=== PATIENT | male | born 1935 | race Caucasian/White ===

== ENCOUNTER → 2017-12-31 | Outpatient (CLI) | payer MEDICARE, BC ==
[~2017-12-31] MED LIST: AMOXICILLIN/CLA1 TA1 PO; ASPIRIN 81M81 MG/TA2 PO; PRAVACHOL 40MG40 MG PO; PRESERVISION1 SGL PO; TRAVATAN Z 2.52.5 ML OS
== END ==
LOC: COL.RAD 10:00
DX: I65.23 Occlusion and stenosis of bilateral carotid arteries (principal); I65.01 Occlusion and stenosis of right vertebral artery
CPT/HCPCS: Q9967

== ENCOUNTER → 2020-03-16 | Outpatient (CLI) | payer MEDICARE, BC | LOC: COL.RAD 11:09 | DX: M47.812 Spondylosis without myelopathy or radiculopathy, cervical region (principal); M43.12 Spondylolisthesis, cervical region; M40.50 Lordosis, unspecified, site unspecified; Z98.890 Other specified postprocedural states ==

== ENCOUNTER 2021-08-11 19:50 | Inpatient (IN) | payer MEDICARE, BC ==
[~2021-08-11] VITALS: Ht 175.3 cm; Wt 55.9 kg
[2021-08-11] MEDS ORDERED: KAPSPARGO SPRIN25 MG PO (20:05)
[2021-08-11 20:27] LABS: BASO % 0.7 % (0.0-2.0); EOS # 0.1 K/mm3 (0.0-0.7); GRAN # 4.3 K/mm3 (1.4-6.5); GRAN % 70.6 % (42.2-75.2); HEMATOCRIT 46.3 % (42.0-52.0); HEMOGLOBIN 15.5 g/dl (13.5-18.0); LYMPH # 0.9 K/mm3 (1.2-3.4); LYMPH % 14.9 % (20.0-51.0); MEAN CELL VOLUME 97 fl (80.0-100.0); MEAN CORPUSCULAR HEMOGLOBIN 33 pg (27-31); MEAN CORPUSCULAR HGB CONC 34 g/dl (33.0-37.0); MEAN PLATELET VOLUME 11.3 fl (7.4-10.4); MONO # 0.8 K/mm3 (0.1-0.6); MONO % 12.6 % (1.7-9.3); PLATELET COUNT 171 K/mm3 (130-400); RED BLOOD COUNT 4.77 M/mm3 (4.20-5.60); REDCELL DISTRIBUTION WIDTH-CV 13.6 % (11.5-14.5)
[2021-08-11 20:46] LABS: ALBUMIN 4.3 gm/dL (3.4-4.8); BILIRUBIN,TOTAL 1.3 mg/dL (0.2-1.2); CALCIUM 9.4 mg/dL (8.4-10.2); CREATININE, serum 1.18 mg/dL (0.72-1.25); POTASSIUM 3.5 mmol/L (3.5-4.5)
[2021-08-11 20:55] LABS: TROPONIN-I 0.039 ng/mL (0.00-0.033)
[2021-08-11 21:22] LABS: C-REACTIVE PROTEIN 0.41 mg/dL (0.00-0.50)
[2021-08-11] MEDS ORDERED: TOPROL XL 25MG25 MG (23:22)
--- NOTE | 2021-08-11 23:30 | NUR ---
Called Dr Roa regarding patient- informed of temp of 99.6,, states we will do blood cultures and he is ordering antibiotics, also informed of troponin 0.054, informed that patient did have a soft brown stool,, states to not give tonights dose of Dulcolox suppository.
[2021-08-11 23:37] VITALS: BP 160/69; PULSE 65; TEMP 99.6
--- NOTE | 2021-08-11 23:48 | NUR ---
Admitted to medical floor from ER- states very weak, no appetite, stomach "Upset" , Dr. Roa here to see patient, Patient is alert/oriented x4 , Tele on, understands to call for assistance to bathroom, NPO, but Dr Roa states can have some sips/chips at this time. IV fluids of NS at 75cc/hr to L/FA.
[2021-08-12 02:54] LABS: COLLECTION METHOD CLEAN CATCH
[2021-08-12 03:01] LABS: MUCOUS Present (NOT PRESENT); PH 5 (5-8); SQUAMOUS EPITHELIAL None Seen /hpf (0-10); URINE APPEARANCE Clear (CLEAR/HAZY); URINE BACTERIA None Seen /hpf (NONE SEEN); URINE BILIRUBIN Negative (NEGATIVE); URINE BLOOD 2+ (NEGATIVE); URINE COLOR Yellow (YELLOW); URINE GLUCOSE Negative (NEGATIVE); URINE KETONE Trace (NEGATIVE); URINE LEUKOCYTE ESTERASE Negative (NEGATIVE); URINE NITRATE Negative (NEGATIVE); URINE PROTEIN(semi-quant) Negative (NEGATIVE); URINE UROBILINOGEN Negative (NEGATIVE)
[2021-08-12 03:56] VITALS: BP 113/55; PULSE 71; TEMP 98.6
--- NOTE | 2021-08-12 06:04 | NUR ---
Has been sleeping well most of the night-- did wake up around 0245 and was in abd pain 08/31-- did give Dilaudid IV , denies need for nausea med, Dilaudid was effective for pain and patient has been sleeping well since. VSS
[2021-08-12 06:57] LABS: BASO % 0.5 % (0.0-2.0); EOS # 0.1 K/mm3 (0.0-0.7); EOS % 1.4 % (0.0-4.0); GRAN # 2.7 K/mm3 (1.4-6.5); GRAN % 64.5 % (42.2-75.2); HEMATOCRIT 40.6 % (42.0-52.0); LYMPH # 0.8 K/mm3 (1.2-3.4); LYMPH % 17.6 % (20.0-51.0); MEAN CELL VOLUME 101 fl (80.0-100.0); MEAN CORPUSCULAR HEMOGLOBIN 33 pg (27-31); MEAN CORPUSCULAR HGB CONC 33 g/dl (33.0-37.0); MONO # 0.7 K/mm3 (0.1-0.6); MONO % 15.8 % (1.7-9.3); PLATELET COUNT 114 K/mm3 (130-400); RED BLOOD COUNT 4.04 M/mm3 (4.20-5.60); REDCELL DISTRIBUTION WIDTH-CV 13.5 % (11.5-14.5)
[2021-08-12 07:04] LABS: ALBUMIN 3.4 gm/dL (3.4-4.8); BILIRUBIN,TOTAL 1.1 mg/dL (0.2-1.2); CALCIUM 8.5 mg/dL (8.4-10.2); CREATININE, serum 0.89 mg/dL (0.72-1.25); POTASSIUM 3.5 mmol/L (3.5-4.5); TOTAL PROTEIN 5.8 gm/dL (6.2-8.1)
[2021-08-12 07:31] LABS: HEMOGLOBIN 13.3 g/dl (13.5-18.0)
[2021-08-12 08:00] VITALS: BP 146/70; PULSE 81; TEMP 97.8
--- NOTE | 2021-08-12 08:46 | NUR ---
Shift assessment performed. Scheduled medications given. PRN pain medication given for nagging abd pain rated a 6/10. Suppository held due to dirrhea. Fluids and abx running as ordered. Upon palpitation of abd, patient reports tenderness in across the upper portion of his abd. Patient appears emaciated. Patient is currenlty resting in bed. Denies any further pain, discomfort, SOA, or further needs at this time. Call light in reach. Fall percautions in place.
[2021-08-12 12:07] VITALS: BP 162/71; PULSE 49; TEMP 98.2
--- NOTE | 2021-08-12 12:17 | NUR ---
CRITICAL TROPONIN CALLED TO RAFFY. INSTRUCTED TO REPEAT AT 1600.
--- NOTE | 2021-08-12 13:39 | NUR ---
SARAH met with the pt to complete intake. Pt lives at home with his spouse, Alex [phone]. Pt reports he is independent on all ADLs and does not use any DME currently, but he has heart monitor coming in the mail this week. He reports no DPOA-HC and is not interested in one at this time. PCP is Markel Brambila and gets his medications from [facility]. Pt repors they have 3 adult children. DC: Home.
--- NOTE | 2021-08-12 14:32 | NUR ---
Tele called this RN stating that patient had a 6 beat run of VTACH. Patient asymptomatic. Jimmy notified.
[2021-08-12 15:20] VITALS: BP 140/69; PULSE 80; TEMP 98
--- NOTE | 2021-08-12 16:43 | NUR ---
Critical troponin called to Jimmy, who read back the results.
--- NOTE | 2021-08-12 17:27 | NUR ---
Patient has had an ok day. PRN pain medication 2x this shift for nagging abd pain. VSS. Patient A&O. Patient currently denies any pain, discomfort, SOA, or further needs at this time. Call light in reach. Fall percuations in place. fluids running as ordered.
[2021-08-12 20:49] VITALS: BP 165/70; PULSE 84; TEMP 98.6
--- NOTE | 2021-08-12 23:02 | NUR ---
ALERT AND OX4. C/O LOWER ABD RT SIDE PAIN. SOME NAUSEA R/T PAIN- ZOFRAN GIVEN. WILL BE NPO FOR POSSIBLE ERCP. CONSULTING GI IN AM. ECO ALSO TO BE DONE IN AM. POC DISCUSSED. CALL LIGHT WI REACH.
[2021-08-12 23:33] VITALS: BP 187/70; PULSE 75; TEMP 98.8
[2021-08-13 03:27] VITALS: BP 131/62; PULSE 65; TEMP 98.6
[2021-08-13 06:46] LABS: BASO % 0.5 % (0.0-2.0); EOS % 0.2 % (0.0-4.0); GRAN # 2.8 K/mm3 (1.4-6.5); HEMATOCRIT 41.5 % (42.0-52.0); HEMOGLOBIN 13.8 g/dl (13.5-18.0); LYMPH # 0.9 K/mm3 (1.2-3.4); LYMPH % 21.3 % (20.0-51.0); MEAN CELL VOLUME 98 fl (80.0-100.0); MEAN CORPUSCULAR HEMOGLOBIN 33 pg (27-31); MEAN CORPUSCULAR HGB CONC 33 g/dl (33.0-37.0); MEAN PLATELET VOLUME 12.2 fl (7.4-10.4); MONO # 0.5 K/mm3 (0.1-0.6); MONO % 11.5 % (1.7-9.3); PLATELET COUNT 104 K/mm3 (130-400); RED BLOOD COUNT 4.23 M/mm3 (4.20-5.60); REDCELL DISTRIBUTION WIDTH-CV 13.4 % (11.5-14.5)
[2021-08-13 07:01] LABS: CALCIUM 8.2 mg/dL (8.4-10.2); CREATININE, serum 0.91 mg/dL (0.72-1.25); POTASSIUM 3.1 mmol/L (3.5-4.5)
[2021-08-13 07:45] VITALS: BP 134/54; PULSE 66; TEMP 98.2
--- NOTE | 2021-08-13 07:51 | NUR ---
PATIENT C/O OF 6-7(10) PAIN. ROXICODONE PER MAR GIVEN, WITH SIP OF WATER. ASSESSMENT PERFORMED. ACTIVE BOWEL SOUNDS IN ALL QUADRANTS. NO COMPLAINTS OF PAIN ON PALPITATIONS, NO GUARDING OR WITHDRAWING. PATIENT STATES "PAIN LOCATIED CENTRALLY AROUND THE UMBILICUS. PAIN A CONSTANT ACHE." PATIENT HAD SOME NOTED BLOOD TINGED SPUTUM/NASAL SECREATIONS IN TISSUES ON BEDSIDE TABLE. AUTHOR INQUIRED, AND CONFIRMED. BASIN ALSO HAS SCANT EMISIS FROM OVER NIGHT. SKIN INTACT. PATIENT MISSING DISTAL JOINT OF LEFT FIRST DIGIT OF HAND. 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 NORMAL STRENGTH IN HANDS AND FEET. CARROTER STRENGTH NOT AFFECTED. PATIENT PLAN FOR ERCP, WILL REPLACE POTASSIUM IV TODAY, AND CHECK MAG PER PROVIDER. MONITOR URINARY OUTPUT, CT SHOWED STONE IN BLADDER AND REPORTS OF PATIENT HAVING BLOOD TINGED URINE, WITH UA + FOR RBC.
--- NOTE | 2021-08-13 11:06 | NUR ---
Initial visit; Patient was hoping Lean Manufacturing Specialist was a nurse bringing ice that he had requested. Patient appears to be quite ill though friendly able to move about. Patient declined Spiritual Care.
[2021-08-13 12:04] VITALS: BP 120/55; PULSE 66; TEMP 98.2
[2021-08-13 15:49] VITALS: BP 130/56; PULSE 61; TEMP 98.2
--- NOTE | 2021-08-13 17:57 | NUR ---
PATIENT COMPLAINTS OF PAIN, DRY HEAVING WITH MOMENTS OF BILE EMESIS. ONLY INTAKE OF SIPS OF WATER AND ICE CHIPS. IV FLUIDS CONTINUED. POTASSIUM SLOW INFUSION. HALF NORMAL RATE. NEW IV ADDED JUST DISTAL OF ORIGINAL SITE. DUCOLAX SUPPOSITORY ORDERED TO TRY TO RELIEVE PRESSURE IN ABDOMEN, AND STIMULATE BOWEL MOVEMENT AND GAS EXPULSION. WILL ATTEMPT BEFORE SHIFT REPORT. IV ONDASTERON GIVEN, PATIENT CONSISTENTLY REQUESTING ORAL PAIN MEDS. EDUCATED REGUARDING BOWEL FUNCTION AND ORAL/IV PAIN MEDICATIONS.
[2021-08-13 20:46] VITALS: BP 167/75; PULSE 68; TEMP 98.9
[2021-08-14 00:45] VITALS: BP 149/66; PULSE 59; TEMP 98.3
[2021-08-14 04:39] VITALS: BP 131/62; PULSE 63; TEMP 98.6
[2021-08-14 06:43] LABS: BASO % 0.2 % (0.0-2.0); GRAN # 3.3 K/mm3 (1.4-6.5); GRAN % 71.2 % (42.2-75.2); HEMATOCRIT 40.8 % (42.0-52.0); HEMOGLOBIN 13.8 g/dl (13.5-18.0); LYMPH # 0.8 K/mm3 (1.2-3.4); LYMPH % 17.5 % (20.0-51.0); MEAN CELL VOLUME 97 fl (80.0-100.0); MEAN CORPUSCULAR HEMOGLOBIN 33 pg (27-31); MEAN CORPUSCULAR HGB CONC 34 g/dl (33.0-37.0); MEAN PLATELET VOLUME 12.2 fl (7.4-10.4); MONO # 0.5 K/mm3 (0.1-0.6); MONO % 10.9 % (1.7-9.3); PLATELET COUNT 91 K/mm3 (130-400); RED BLOOD COUNT 4.22 M/mm3 (4.20-5.60); REDCELL DISTRIBUTION WIDTH-CV 13.5 % (11.5-14.5)
[2021-08-14 07:10] LABS: CALCIUM 8.1 mg/dL (8.4-10.2); CREATININE, serum 0.8 mg/dL (0.72-1.25); POTASSIUM 3.6 mmol/L (3.5-4.5)
[2021-08-14 08:05] VITALS: BP 154/82; PULSE 69; TEMP 97.9
[2021-08-14 11:34] VITALS: BP 129/55; PULSE 59; TEMP 97.8
--- NOTE | 2021-08-14 13:28 | NUR ---
PATIENT RESTING IN BED. C/O PAIN, 4(10). SPUTUM, COPIOUS AMOUNTS. PATIENT WITH PERSISTENT COUGH. PICC LINE ORDERED, WITH TPN. PATIENT NOT TOLERATING PO INTAKE. LUNG SOUNDS WORSENING FROM YESTURDAY TODAY. PROVIDER NOTIFIED.
[2021-08-14 15:51] VITALS: BP 137/65; PULSE 66; TEMP 98.6
[2021-08-14 15:56] LABS: ALBUMIN 3.2 gm/dL (3.4-4.8); BILIRUBIN,TOTAL 0.9 mg/dL (0.2-1.2); CREATININE, serum 0.81 mg/dL (0.72-1.25); PHOSPHOROUS 2.2 mg/dL (2.3-4.7); POTASSIUM 3.6 mmol/L (3.5-4.5); TOTAL PROTEIN 5.8 gm/dL (6.2-8.1)
--- NOTE | 2021-08-14 18:22 | NUR ---
PATIENT PICC PLACEMENT. TPN WITH LIPIDS STARTED. 1/2 NS AND IV ANTIBIOTICS. TWO PIV SITES STILL PATENT. IV PAIN MEDS AND ORAL PAIN MEDS AVAILABLE. PATIENT AWARE THAT FREQUENT NARCOTICS CAN CAUSE BOWEL STOPPAGES. PATIENT HAD ABD XRAY AND CHEST XRAY. ABD IS NON-REMARKABLE, GASEOUS . CHEST SHOWS PNEUMONIA, LUNG SOUNDS WHEEZES AND CRACKLES. NON-AMBULATORY DUE TO NOT TOLERATING UP-RIGHT BODY POSITION. ENCOURAGING PO CLEARS.
[2021-08-14 20:30] VITALS: BP 185/59; PULSE 68; TEMP 97.5
--- NOTE | 2021-08-14 20:30 | NUR ---
Initial shift assessment done- states having abd pain 08/31--will give Roxicodone as ordered, denies nausea. taking only sips/chips, Abd is distended,soft, with very hyperactive bowel sounds, PICC to JUILANO with TPN at 35cc/hr and lipids at 21cc/hr, also has 1/2 NS at 30cc/hr. Tele on. Voiding per urinal empied 250 marcellus colred urine at this time.
[2021-08-15 00:17] VITALS: BP 156/74; PULSE 67; TEMP 98.8
--- NOTE | 2021-08-15 04:20 | NUR ---
O2 sats 89-90 % on RA- put on 3L/nc, sats now 93 %
[2021-08-15 04:49] VITALS: BP 145/89; PULSE 50; TEMP 99.1
--- NOTE | 2021-08-15 05:34 | NUR ---
Resting on and off- has had abd pain and received Dilaudid IV x2 and oxycodone p.o x1 this shift-- Dilaudid was more effective for pain control during the night. Denies nausea- Continues with TPN-
[2021-08-15 06:41] LABS: BASO % 0.2 % (0.0-2.0); EOS % 0.4 % (0.0-4.0); GRAN # 4.3 K/mm3 (1.4-6.5); GRAN % 78.7 % (42.2-75.2); HEMATOCRIT 37.3 % (42.0-52.0); HEMOGLOBIN 12.7 g/dl (13.5-18.0); LYMPH # 0.6 K/mm3 (1.2-3.4); LYMPH % 11.6 % (20.0-51.0); MEAN CELL VOLUME 97 fl (80.0-100.0); MEAN CORPUSCULAR HEMOGLOBIN 33 pg (27-31); MEAN CORPUSCULAR HGB CONC 34 g/dl (33.0-37.0); MEAN PLATELET VOLUME 12.4 fl (7.4-10.4); MONO # 0.5 K/mm3 (0.1-0.6); MONO % 8.7 % (1.7-9.3); PLATELET COUNT 86 K/mm3 (130-400); RED BLOOD COUNT 3.86 M/mm3 (4.20-5.60); REDCELL DISTRIBUTION WIDTH-CV 13.4 % (11.5-14.5)
[2021-08-15 06:46] LABS: CALCIUM 7.8 mg/dL (8.4-10.2); CREATININE, serum 0.77 mg/dL (0.72-1.25); PHOSPHOROUS 1.8 mg/dL (2.3-4.7); POTASSIUM 3.2 mmol/L (3.5-4.5)
[2021-08-15 07:27] VITALS: BP 174/91; PULSE 72; TEMP 98
--- NOTE | 2021-08-15 08:49 | NUR ---
PATIENT ALERT AND ORIENTED X3. ON TPN. CLEAR LIQUID DIET. MRI THIS AFTERNOON. NOW NPO. NO NEW CONCERNS.
[2021-08-15 12:22] VITALS: BP 146/75; PULSE 71; TEMP 99.2
[2021-08-15 16:19] VITALS: BP 160/88; PULSE 57; TEMP 98.4
[2021-08-15 19:22] VITALS: BP 181/76; PULSE 74; TEMP 98.2
--- NOTE | 2021-08-16 01:30 | NUR ---
PT REPORTED PAIN 6-7 AND SHOOTS UP TO 9-10 THAT HE HAD NOT SLEPT FOR DAYS. PAIN MEDS AND SLEEP GIVEN ALONG WITH PM MEDS. TPN RUNNING PER ORDER. OCC NAUSEA. SCHE REGLAN.PICC FLUSHED W GOOD BLOOD RETURN. POC DISCUSSED. NEEDS MET.
[2021-08-16 03:18] VITALS: BP 163/76; PULSE 84; TEMP 98.9
--- NOTE | 2021-08-16 05:47 | NUR ---
PAIN CONTROLLED W BOTH IV AND PO PAIN MED, CONT TO HAVE LOOSE STOOLS. NEEDS MET. CALL LIGHT WI REACH.
[2021-08-16 07:06] LABS: MAGNESIUM 2.1 mg/dL (1.6-2.6); PHOSPHOROUS 1.8 mg/dL (2.3-4.7)
[2021-08-16 07:42] VITALS: BP 186/70; PULSE 95; TEMP 97.6
--- NOTE | 2021-08-16 08:49 | NUR ---
PATIENT PAIN BETTER CONTROLLED WITH ROXICODONE. PATIENT STILL NAUSEOUS. PATIENT IS UNCOMFORTABLE AND WANTS TO GO HOME.
[2021-08-16 13:10] VITALS: BP 150/93; PULSE 70
--- NOTE | 2021-08-16 14:45 | NUR ---
material preparation worker met with patient to discuss discharge plan. Asked if the patient would be interested in going to skilled rehab after this stay. Informed the patient that at this time PT/OT is recommending a return home. Patient is not interested in going to post acute rehab. Patient states that at this time he is in a lot of pain. He asks if he would be able to get morphine. Informed him that i would let his nurse know and that she will check into it with the MD.
[2021-08-16 15:49] VITALS: BP 160/54; PULSE 84; TEMP 98.3
--- NOTE | 2021-08-16 19:50 | NUR ---
Initial shift assessment done-states abd pain 12/31,,will give Dilaudid IV as ordered, denies nausea, o2 at 3L/nc, sats 93%, PICC to JULIANO has TPN at 42cc/hr, and Lipids at 21cc/hr, Tele on-ST at 106/min, some dysrrythmias, B/P borderline high at 184/85, will take again in 1 hour to see if pain meds brings it down before giving prn Hydralazine. Taking just sips of CL
[2021-08-16 20:08] VITALS: BP 184/85; PULSE 101; TEMP 98.5
[2021-08-16 21:00] VITALS: BP 157/84
[2021-08-17] VITALS (7 sets, daily range): BP systolic 129–203; BP diastolic 61–109; PULSE 51–116; TEMP 97.8–98.9
--- NOTE | 2021-08-17 00:20 | NUR ---
B/P 203/109, pulse 106, abd pain 10/31--Dilaudid IV and Hydralazine IV given at this time-- denies nausea.
--- NOTE | 2021-08-17 02:10 | NUR ---
HR has been 120-130 on and off tonight- everytime he is up on the commode or using urinal- cannot get comfortable , B/P have been high- did come down 163/91 after hydralazine, pt has been getting the Dilaudid every 2 hours for pain but pt states the last dose did not work, pt coughing, productive white sputum- Jeni VITALE called with all of the above- feels it is anxiety related-- ordered Ativan IV and Metoprolol IV one time orders-
--- NOTE | 2021-08-17 04:57 | NUR ---
Has been sleeping soundly since Ativan IV/Metoprolol IV was given, very effective- HR down to 70-80s/min, B/P down to 134/61
--- NOTE | 2021-08-17 06:30 | NUR ---
PT LAYING IN BED AWAKE. STATES HE FEELS MUCH BETTER TODAY THAN HE DID YESTERDAY. PAIN IS A 4/10 AT THIS TIME. NO OTHER CONCERNS. WILL RETURN FOR ASSESSMENT AND MORNING MEDICATIONS.
[2021-08-17 07:09] LABS: CALCIUM 8.1 mg/dL (8.4-10.2); CREATININE, serum 0.65 mg/dL (0.72-1.25); MAGNESIUM 2.1 mg/dL (1.6-2.6)
[2021-08-17 07:11] LABS: POTASSIUM 2.9 mmol/L (3.5-4.5)
--- NOTE | 2021-08-17 08:37 | NUR ---
ASSESSMENT COMPLETED. PT A&OX4, VSS.
--- NOTE | 2021-08-17 11:26 | NUR ---
SW met with patient along with palliative care RN to discuss goals of care. upon entering room, patient states he is in pain and is current experiencing N/V. Patient's RN notified. Patient verbalized that he would like to pursue hospice services. Education provided on the differnt facilities that would be available to him. Patient verbalized that he would like to go home. Educated him that his would be his 24/7 caregiver. Patient is unsure if she would be able to provide his care. Patient is open to looking into the hospice house as long as it is not expensive. Palliative care RN and myself contact the patients at home ([phone]). expresses concerns over where a hospital bed would be able to be placed within the home and asks why he wouldn't be able to stay in his own bed. Education provided to her that at this time, he would be bedbound. expressed that she would not like any of the patient's information sent to a facility until she spoke with her son. SW attended clinical rounding and the patient verbalized an agreement with sending his information to [facility].
--- NOTE | 2021-08-17 15:38 | NUR ---
Jake from [facility] reached out to patient and reported back to me about conversation. She explained sliding scale to patient and stated he was still wanting to go home but was unsure his could handle it at home. Jake shared that they provide home services and he has the option to transition to the house if needed. Patient again concerned about finances and . Jake stated that the house has availability, they would prefer an admit of Friday or Friday because Friday and Friday already have admits planned. Notified SW as well.
--- NOTE | 2021-08-17 18:39 | NUR ---
PATIENT ORIENT AND ALERT X4,PLACED ON PALLIATIVE CARE,NOW DNR, HAD COMPLAINS OF ABD PAIN THROUGHOUT THE DAY,RATES IT AT 7/8 , P.O MORPHINE GIVEN PRESCRIBED , LIPIDS AND TPN UPAND RUNNING.
--- NOTE | 2021-08-17 22:32 | NUR ---
Patient assessed around 2034. Alert and oriented. Reported pain, but declined pain medication at that time. PICC to RUE with TPN/lipids running per orders. Productive cough. LS coarse crackles. BSAx4. No edema. In bed with call light within reach. Bed alarm on.
[2021-08-18 00:50] VITALS: BP 131/97; PULSE 88; TEMP 98.9
[2021-08-18 04:39] VITALS: BP 170/98; PULSE 53; TEMP 98.1
--- NOTE | 2021-08-18 05:43 | NUR ---
Patient had declined pain medication during the night, but was moaning and having facial grimacing. Talked to patient about pain medication, and was agreeable to take medication. Given per orders as requested. Also given PRN Zofran for nausea this morning. In bed with call light within reach. Bed alarm on. Voices no further questions, needs, or concerns at this time.
[2021-08-18 07:22] LABS: MAGNESIUM 2.1 mg/dL (1.6-2.6)
--- NOTE | 2021-08-18 07:24 | NUR ---
PATIENT IS SICK LOOKING AND WEAKLY,ALERT AND ORIENT X4, STATES THAT PAIN IS AT 7/10.
[2021-08-18 08:03] VITALS: BP 138/83; PULSE 113; TEMP 99
--- NOTE | 2021-08-18 09:19 | NUR ---
Maritime Officer confirmed plan of care for patient to admit to hospice care through [facility] with both Dr. Blackmon and Delia ARCE. Patient and family supports placement at Hospice House vs. home with hospice care. Jake from [facility] has met and spoken to patient and family yesterday. Per Jake, an admission is preferred today or tomorrow. Maritime Officer contacted [facility] and spoke to Sussy ARCE who informs the facility typically does not accept admissions on the weekend, but due to shared information will contact Jake to discuss and call this Maritime Officer back. Maritime Officer awaiting follow up from [facility] for discharge coordination.
--- NOTE | 2021-08-18 11:31 | NUR ---
Floor Trader received return contact from Sussy ARCE from [facility] informing she has spoken to Jake, and is able to coordinate placement today. She confirms patient's primary care physician, will contact to determine patient acceptance, and requests DNR, specific medications for comfort measures. 10:00 Floor Trader receives returned contact from Sussy ARCE informing Dr. Ulloa is willing to accept patient to hospice on behalf of Dr. Rivera. RN would like to come up to the hospital to spek with patient and family to support in their decision making. Anticipated discharge today. Delia ARCE and Dr. Blackmon updated. *Discharge plan: [facility] care at home vs. hospice house placement. Awaiting RN to arrive and speak to patient and family to confirm plan of care*
--- NOTE | 2021-08-18 12:26 | NUR ---
Explosives Mixer Operator met with patient to discuss plan and notify that the RN from [facility] will come to visit him today to further offer him information and address any concerns he has. He is in agreement, and he contacted his spouse to notify. She is planning to get a ride to the hospital as soon as possible to make the meeting. Delia ARCE is updated. Dr. Blackmon is updated on plan of care.
[2021-08-18] MEDS ORDERED: DULCOLAX S10 MG/SUPP RC ×2 (12:34)
[2021-08-18] MEDS ORDERED: SYSTANE 0.4%-0.1 SOL OU ×2 (12:34)
[2021-08-18] MEDS ORDERED: TRANSDERM-0.5 MG/21 TD ×2 (12:34)
[2021-08-18] MEDS ORDERED: ROXANOL 20MG20 MG/ML SL ×2 (12:38)
[2021-08-18] MEDS ORDERED: ATIVAN 1MG T1 MG/TAB PO ×2 (12:38)
[2021-08-18 12:51] VITALS: BP 183/85; PULSE 103; TEMP 98.2
--- NOTE | 2021-08-18 16:52 | NUR ---
Delia ARCE informs this Analog Ic Design Engineer and Photographer Still Radha, that patient family and [facility] RN Sussy, have confirmed plan of care for patient to admit to hospice house tomorrow morning at 10:30. Patient son has requested to transport patient there himself, and patient is determined able to be transported safely in a private vehicle. *Discharge plan: [facility] tomorrow morning at 10:30, patient son to transport him in private vehicle*
--- NOTE | 2021-08-18 18:28 | NUR ---
PATIENT COMPLAINS OF PAIN THROUGHOUT THE DAY, ON OPIDS PRESCRIBED, ON PALLIATIVE CARE, DC TO HOSPICE.
--- NOTE | 2021-08-18 19:00 | NUR ---
PT HAD DIFFICULT DAY WITH PAIN. MEDICATIONS WERE DISCONTINUED FOR FULL COMFORT CARE. THE PATIENT'S FAMILY DID COME IN AND HAD A PALLIATIVE DISCUSSION, AND DECIDED TO SEND THE PATIENT TO [facility]. HE WILL DISCHARGE TOMORROW VIA PRIVATE VEHICLE TO [facility] AT 1030. THE PATIENT'S PAIN WAS UNCONTROLLED, AND THE PATIENT WAS GIVEN A FENTANYL PATCH ORDER. NO OTHER CONCERNS AT THIS TIME. REPORT GIVEN TO YAZMIN VILLAVICENCIO.
--- NOTE | 2021-08-18 21:51 | NUR ---
Patient assessed around 2034. Alert and oriented x 4. Patient showing s/sx of pain and discomfort: moaning, facial grimacing, gaurding stomach. Stated pain was not bad, and at first declined pain medication. Talked with patient about pain management and agreeable to take PRN Roxanol. Patient did have some nausea as well. Given PRN Roxanol and Zofran per orders. In bed with call light within reach. Voices no further questions, needs, or concerns at this time. Bed alarm on.
--- NOTE | 2021-08-19 06:02 | NUR ---
Patient resting in bed with call light within reach. Did get up and walk to bathroom once during the night. Declined any more pain medication during the night. Bed alarm on. Telemetry D/C'd due to comfort care.
--- NOTE | 2021-08-19 06:30 | NUR ---
THE PATIENT IS SLEEPING COMFORTABLY AT THIS TIME. PLAN FOR TODAY IS THE PATIENT WILL LEAVE TO HOSPICE HOUSE AT 1030.
[2021-08-19] MEDS ORDERED: ATIVAN 1MG T1 MG/TAB PO (10:05)
[2021-08-19] MEDS ORDERED: SYSTANE 0.4%-0.1 SOL OU (10:05)
[2021-08-19] MEDS ORDERED: TRANSDERM-0.5 MG/21 TD (10:05)
[2021-08-19] MEDS ORDERED: DULCOLAX S10 MG/SUPP RC (10:05)
[2021-08-19] MEDS ORDERED: ROXANOL 20MG20 MG/ML SL (10:05)
--- NOTE | 2021-08-19 10:45 | NUR ---
FAMILY IS HERE TO TAKE PATIENT TO [facility] AT THIS TIME. PT PICC LINE REMOVED WITHOUT DIFFICULTY AT 1000. THE PATIENT HAS BEEN LAYING FLAT SINCE REMOVAL, AND NOW IS GETTING INTO A WHEELCHAIR TO MOVE OVER TO [facility]. NO OTHER CONCERNS. PT LEAVING AT THIS TIME.
--- NOTE | 2021-08-21 09:07 | NUR ---
*(Late entry)* SARAH faxed patient's clinical information to Jake at the [facility]. Phone call placed and message left for Jake to check on availability. No answer received.
== END 2021-08-19 10:55 | disposition hospice, inpatient (51) | DRG 438 ==
LOC: COL.ER 19:50 → MEDICAL 22:30
PROVIDERS: Emergency Medicine; Physician Assistant; Student in an Organized Health Care Education/Training Program
PROC: 02HV33Z Insertion of Infusion Device into Superior Vena Cava, Percutaneous Approach (ICD-10-PCS; principal; 2021-08-14)
DX: K86.89 Other specified diseases of pancreas (principal); E43 Unspecified severe protein-calorie malnutrition; J18.9 Pneumonia, unspecified organism; K56.0 Paralytic ileus; N17.9 Acute kidney failure, unspecified; I50.30 Unspecified diastolic (congestive) heart failure; Z68.1 Body mass index [BMI] 19.9 or less, adult; K86.9 Disease of pancreas, unspecified; E78.5 Hyperlipidemia, unspecified; E87.6 Hypokalemia; I73.9 Peripheral vascular disease, unspecified; N40.0 Benign prostatic hyperplasia without lower urinary tract symptoms; H40.9 Unspecified glaucoma; I27.20 Pulmonary hypertension, unspecified; I11.0 Hypertensive heart disease with heart failure; I07.1 Rheumatic tricuspid insufficiency; E83.39 Other disorders of phosphorus metabolism; Z51.5 Encounter for palliative care; Z87.891 Personal history of nicotine dependence; Z79.82 Long term (current) use of aspirin; Z20.822 Contact with and (suspected) exposure to COVID-19
CPT/HCPCS: 99223-AI; 99232-AI; 99233-AI; A9575; C1751; C1892; C9113; J0360; J0780; J1170; J1650; J2060; J2270; J2405; J2543; J2765; J3411; J3480; J7030; J7050; Q9967